=== PATIENT | female | born 1995 | race African-American/Black ===

== ENCOUNTER 2024-06-11 14:28 | Emergency (ER) | payer OTHER ==
[2024-06-11] MEDS ORDERED: Boostrix 0.5 ML (Tdap) VIAL (>/=7 yrs of age) ONE (14:51)
[2024-06-11] MEDS ORDERED: Bacitracin 1 PK ONE (14:51)
== END 2024-06-11 14:31 | disposition home or self-care (01) ==
LOC: MADERS 14:28
DX: T22.211A Burn of second degree of right forearm, initial encounter (principal); Z23 Encounter for immunization
CPT/HCPCS: 90471; 90715

== ENCOUNTER 2024-07-03 12:01 | Emergency (ER) | payer SELFPAY ==
[2024-07-03] MEDS ORDERED: Acetaminophen 500 MG TAB ONE (12:10)
[2024-07-03] MEDS ORDERED: Ibuprofen 600 MG TAB ONE (12:49)
[2024-07-03 14:13] LABS: Hematocrit 35.8 % (36.0-47.0); Hemoglobin 11.7 g/dL (12.0-16.0); Mean Corpuscular HGB CONC 32.6 g/dL (32.0-36.0); Mean Corpuscular Hemoglobin 28.9 pg (27.0-31.0); Mean Corpuscular Volume 88.6 fl (78.0-98.0); Platelet Count 195 10x3/uL (130-400); RBC Distribution Width 12.3 % (11.5-14.5); Red Blood Cell (RBC) Count 4.04 mill/uL (4.20-5.40)
[2024-07-03 14:18] LABS: Anion Gap 15 mmol/L (10-20); BUN (Urea Nitrogen) 9 mg/dL (7.0-18.7); Calc. Creatinine Clearance 0 mL/min (70-130); Calcium 8.9 mg/dL (7.8-10.44); Carbon Dioxide 20 mmol/L (22-29); Chloride 104 mmol/L (98-107); Estimated GFR 79; Glucose 95 mg/dL (70-105); Potassium 3.6 mmol/L (3.5-5.1); Sodium 135 mmol/L (136-145)
[2024-07-03 14:27] LABS: Band 6 % (5-11); Lymphocytes 14 % (21-51); MDiff Complete? YES; Manual Diff?? YES; Neutrophil 71 % (42-75)
[2024-07-03 14:28] LABS: Hypochromia SLIGHT = 6-15 cells (100X) (0-5/hpf); Monocytes 4 % (0-10); Reactive Lymphocytes 5 % (0-10)
[2024-07-03 14:29] LABS: Platelet Adequacy Comment Appears Adequate; Polychromasia SLIGHT = 2-3 cells (100X) (0-2/hpf)
== END 2024-07-03 14:54 | disposition home or self-care (01) ==
LOC: MADERS 12:01
DX: J10.1 Influenza due to other identified influenza virus with other respiratory manifestations (principal)
CPT/HCPCS: 36415; 80048; 83605; 85025; 87400; 99283